=== PATIENT | female | born 1995 | race Caucasian/White ===

== ENCOUNTER 2021-01-17 06:34 | Emergency (ER) | payer MEDICAID, OTHER ==
[~2021-01-17] VITALS: Ht 167.6 cm; Wt 65.8 kg
--- NOTE | 2021-01-17 07:15 | NUR ---
pt bibs c/o glf landed on back, has back pain 9/. alert and oriented x4. unable to walk due to pain. pt states she did not hit her head and pain does not radiate anywhere.
[2021-01-17] MEDS ORDERED: CYCLOBENZAPRINE 10 MG TABLET PO ONE (07:30)
[2021-01-17] MEDS ORDERED: KETOROLAC TROMETHAMINE INJ 30 MG/ML VIAL IM ONE (07:30)
--- NOTE | 2021-01-17 08:05 | NUR ---
THE PATIENT SLEEPING IN ER BED #10. EASILY RESPONSIVE TO VERBAL STIMULI. RESPIRATION REGULAR AND UNLABORED. WILL CONTINUE TO MONITOR THE PATIENT.
[2021-01-17] MEDS ORDERED: IBUP-1957 PO (10:58)
[2021-01-17] MEDS ORDERED: TRAM-351 PO (10:58)
[2021-01-17 11:18] VITALS: BP 137/87
== END 2021-01-17 11:19 | disposition home or self-care (01) ==
LOC: ER 06:34
DX: S30.0XXA Contusion of lower back and pelvis, initial encounter (principal); W01.0XXA Fall on same level from slipping, tripping and stumbling without subsequent striking against object, initial encounter; Y93.01 Activity, walking, marching and hiking; Y92.89 Other specified places as the place of occurrence of the external cause; Y99.8 Other external cause status
CPT/HCPCS: 96372; 99283; J1885